=== PATIENT | male | born 1955 | race Caucasian/White ===

== ENCOUNTER 2023-03-03 19:33 | Emergency (ER) | payer MEDICARE ==
[~2023-03-03] VITALS: Ht 188 cm; Wt 95.2 kg
[~2023-03-03 19:33] MED LIST: CEPH500 PO; HYDACE5 PO; OXYACE5T PO; RXOXYACE PO
[2023-03-03 19:42] VITALS: BP 184/102
[2023-03-03] MEDS ORDERED: AMOCLA875 PO (21:55)
== END 2023-03-03 21:56 | disposition home or self-care (01) ==
LOC: ER 19:33
DX: S61.210A Laceration without foreign body of right index finger without damage to nail, initial encounter (principal); W23.0XXA Caught, crushed, jammed, or pinched between moving objects, initial encounter
CPT/HCPCS: 73140

== ENCOUNTER 2023-05-17 10:57 | Emergency (ER) | payer MEDICARE ==
[~2023-05-17] VITALS: Ht 188 cm; Wt 97.5 kg
[~2023-05-17 10:57] MED LIST changes: +AMOCLA875 PO
[2023-05-17 14:00] VITALS: BP 184/92
[2023-05-17] MEDS ORDERED: EPIPEN 2-P0.3 MG/0.1 IM (14:25)
== END 2023-05-17 14:36 | disposition home or self-care (01) ==
LOC: ER 10:57
DX: T63.461A Toxic effect of venom of wasps, accidental (unintentional), initial encounter (principal); R22.0 Localized swelling, mass and lump, head; Z91.030 Bee allergy status
CPT/HCPCS: 96372; 99283-25; A9270; J0171; J1100